=== PATIENT | male | born 1960 | race Caucasian/White ===

== ENCOUNTER 2016-11-29 19:39 | Emergency (ER) | payer BC ==
[~2016-11-29] VITALS: Ht 185.4 cm; Wt 160.3 kg
[~2016-11-29 19:39] MED LIST: AMLODIPINE BES2.5 MG PO; AMOXICILLIN500 MG PO; ASPIRIN81 M2 PO; BENICAR; BENICAR HCT 401 EAC1 PO; CRESTOR; CRESTOR10 MG PO; FUROSEMIDE20 MG PO; GLUCOSAMINE PO; HEALTHY HEART1 EAC1 PO; HYDROCHLOROTHIA25 MG PO; HYDROCODON-ACE1 EAC5 PO; LIPITOR; METOPROLOL; METOPROLOL SUCC50 MG PO; VENTOLIN HFA18 GM IH
[2016-11-29 20:39] VITALS: BP 139/83
== END 2016-11-29 20:40 | disposition home or self-care (01) ==
LOC: EME 19:39
PROC: 0HQFXZZ Repair Right Hand Skin, External Approach (ICD-10-PCS; principal; 2016-11-29)
DX: S61.210A Laceration without foreign body of right index finger without damage to nail, initial encounter (principal); W26.8XXA Contact with other sharp object(s), not elsewhere classified, initial encounter; Y93.G3 Activity, cooking and baking; Z88.8 Allergy status to other drugs, medicaments and biological substances
CPT/HCPCS: 99281; 99284; S0020